=== PATIENT | female | born 1990 | race Hispanic/Latino ===

== ENCOUNTER 2017-11-17 08:52 | Emergency (ER) | payer BC | END 2017-11-17 09:06 | disposition home or self-care (01) | LOC: SCSER 08:52 | DX: S86.912A Strain of unspecified muscle(s) and tendon(s) at lower leg level, left leg, initial encounter (principal); S86.911A Strain of unspecified muscle(s) and tendon(s) at lower leg level, right leg, initial encounter; X50.0XXA Overexertion from strenuous movement or load, initial encounter | CPT/HCPCS: 99283 ==

== ENCOUNTER 2019-06-30 07:01 | Inpatient (IN) | payer BC ==
[2019-06-30] MEDS ORDERED: Ketorolac Tromethamine 30 MG/ML VIAL ONE (07:32)
[2019-06-30 08:25] LABS: Pregnancy Test - Urine (BHCG) Negative (Negative); Pregu Control Background? CLEAR/WHITE (CLR/WHITE); Pregu Control Bar Appear? YES (CONTROL BAR); Specific Gravity 1.026 (1.002-1.036)
[2019-06-30 08:48] LABS: Bilirubin Negative (Negative); Blood, Urine 2+ (Negative); Clarity Turbid (Clear); Glucose, Urine (Dipstick) Normal (Negative); Leukocyte 500 Leu/uL (Negative); Nitrite Negative (Negative); Protein, Urine (Dipstick) 10 mg/dL (Neg-Trace); Urobilinogen Normal mg/dL (Less than 2); WBC/HPF 21-50 HPF (0-3)
[2019-06-30 08:49] LABS: Bacteria/HPF 3+ HPF (None Seen); Yeast-Budding Rare HPF (None Seen)
[2019-06-30] MEDS ORDERED: Morphine 4 MG/ML VIAL ONE ×3 (08:54→12:08)
[2019-06-30] MEDS ORDERED: cefTRIAXone\\ROCEPHIN 1 GM VIAL ONE ×2 (08:54→09:03)
[2019-06-30] MEDS ORDERED: Ondansetron PF 4 MG/2 ML Vial ONE ×2 (08:56→09:03)
[2019-06-30 09:22] LABS: #Lymphocytes 0.9 thou/uL (1.20-3.40); #Monocytes 0.9 thou/uL (0.11-0.59); #Neutrophils 14.6 thou/uL (1.40-6.50); %Basophils 0.2 % (0.0-1.0); %Lymphocytes 5.5 % (21.0-51.0); %Monocytes 5.5 % (0.0-10.0); %Neutrophils 88.7 % (42.0-75.0); Hemoglobin 12.3 g/dL (12.0-16.0); Mean Corpuscular Hemoglobin 29.6 pg (27.0-31.0); Mean Corpuscular Volume 84.5 fL (78.0-98.0); Mean Platelet Volume 7.5 fL (7.4-10.4); Platelet Count 273 thou/uL (130-400); Red Blood Cell (RBC) Count 4.15 mill/uL (4.20-5.40); White Blood Cell (WBC) Count 16.5 thou/uL (4.8-10.8)
[2019-06-30 09:43] LABS: ALT (SGPT) 13 U/L (8-55); AST (SGOT) 14 U/L (5-34); Albumin 4.3 g/dL (3.5-5.0); Alkaline Phosphatase 67 U/L (40-110); Anion Gap 12 mmol/L (10-20); BUN (Urea Nitrogen) 10 mg/dL (7.0-18.7); Bilirubin, Total 1.9 mg/dL (0.2-1.2); Calc. Creatinine Clearance 0 mL/min (70-130); Calcium 9.4 mg/dL (7.8-10.44); Carbon Dioxide 20 mmol/L (22-29); Chloride 104 mmol/L (98-107); Estimated GFR-MDRD Greater than 90; Globulin 3.4 g/dL (2.4-3.5); Glucose 108 mg/dL (70-105); Potassium 3.4 mmol/L (3.5-5.1); Protein, Total 7.7 g/dL (6.0-8.3); Sodium 133 mmol/L (136-145)
--- NOTE | 2019-06-30 11:42 | PDOC.FPRHP ---
- History of Present Illness Chief Complaint: back pain History of Present Illness: Patience presents with a 1 day hx of back pain and chills she reports a sharp stabbing pain staring in her mid L back last night and continuing into today, she also had fever during this which brought her to the ED. she denies n/v/d, vaginal discharge or pain. she has never had anything like this before. no hx of kidney stones. ED Course: vanc, rocephin, morphine, ketorolac cbc, cmp, bcx, ucx, ua - History PMHx: none PSHx: CSx3 BTL FHx:HTN, DM Social:no TAD - Review of Systems General: reports: fever/chills, night sweats Eyes: denies: vision changes ENT: denies: nasal congestion Respiratory: denies: cough, shortness of breath Cardiovascular: denies: chest pain, palpitation Gastrointestinal: denies: nausea, vomiting, diarrhea Genitourinary: denies: incontinence, dysuria, discharge Skin: denies: rashes Musculoskeletal: reports: pain Neurological: denies: numbness, syncope - Vital signs 147/69, Pulse: 108, Resp: 26, Temp: 99.2 (Oral), Pain: 10, O2 sat: 100 on ( Room Air - Physical Exam Constitutional: NAD HEENT: normocephalic and atraumatic, grossly normal vision, grossly normal hearing Neck: trachea midline Chest: no-tender to palpation Heart: RRR, no murmurs/rubs/gallops Lungs: CTAB -Abdomen: mildly TTP throughout, CVA tenderness Musculoskeletal: normal structure, normal tone Neurological: no focal deficit, CN II-XII intact Skin: no rash/lesions, good turgor Heme/Lymphatic: no unusual bruising or bleeding Psychiatric: normal mood and affect FMR H&P: Results - Labs Result Diagrams: 06/30/19 09:06 06/30/19 09:06 Lab results: WBC 16.5 thou/uL (4.8-10.8) H 06/30/19 09:06 Hgb 12.3 g/dL (12.0-16.0) 06/30/19 09:06 Hct 35.0 % (36.0-47.0) L 06/30/19 09:06 MCV 84.5 fL (78.0-98.0) 06/30/19 09:06 Plt Count 273 thou/uL (130-400) 06/30/19 09:06 Neutrophils % 88.7 % (42.0-75.0) H 06/30/19 09:06 Sodium 133 mmol/L (136-145) L 06/30/19 09:06 Potassium 3.4 mmol/L (3.5-5.1) L 06/30/19 09:06 Chloride 104 mmol/L (98-107) 06/30/19 09:06 Carbon Dioxide 20 mmol/L (22-29) L 06/30/19 09:06 BUN 10 mg/dL (7.0-18.7) 06/30/19 09:06 Creatinine 0.71 mg/dL (0.6-1.1) 06/30/19 09:06 Glucose 108 mg/dL (70-105) H 06/30/19 09:06 Lactic Acid 0.8 mmol/L (0.5-2.2) 06/30/19 09:06 Calcium 9.4 mg/dL (7.8-10.44) 06/30/19 09:06 Total Bilirubin 1.9 mg/dL (0.2-1.2) H 06/30/19 09:06 AST 14 U/L (5-34) 06/30/19 09:06 ALT 13 U/L (8-55) 06/30/19 09:06 Alkaline Phosphatase 67 U/L (40-110) 06/30/19 09:06 Serum Total Protein 7.7 g/dL (6.0-8.3) 06/30/19 09:06 Albumin 4.3 g/dL (3.5-5.0) 06/30/19 09:06 Urine Ketones 10 mg/dL (Negative) A 06/30/19 07:37 Urine Blood 2+ (Negative) A 06/30/19 07:37 Urine Nitrite Negative (Negative) 06/30/19 07:37 Ur Leukocyte Esterase 500 Cirilo/uL (Negative) A 06/30/19 07:37 Urine RBC 7-10 HPF (0-3) A 06/30/19 07:37 Urine WBC 21-50 HPF (0-3) A 06/30/19 07:37 Ur Squamous Epith Cells 11-20 HPF (0-3) A 06/30/19 07:37 Urine Bacteria 3+ HPF (None Seen) A 06/30/19 07:37 FMR H&P: A/P - Problem List (1) Pyelonephritis Current Visit: Yes Status: Acute Code(s): N12 - TUBULO-INTERSTITIAL NEPHRITIS, NOT SPCF ACUTE OR CHRONIC - Plan pyelonephritis - elevated wbc, +UA, febrile - continue rocephin - CT stone protocol - morphine for pain control dispo: admit to inpatient medical for stay>48hrs FMR H&P: Upper Level - Plan Date/Time: 06/30/19 6468 I, [], have evaluated this patient and agree with findings/plan as outlined by international relations teacher resident. Pertinent changes/additions are listed here. Addendum - Attending - Attending Attestation Date/Time: 06/30/19 5340 I personally evaluated the patient and discussed the management with Dr. Love I agree with the History, Examination, Assessment and Plan documented above with any addition or exceptions noted below. 28 yo female with severe flank pain left greater than right admitted through ER with sepsis secondary to pyelonephritis. Given severity of pain would image this patient to r/u obstructive process. Rocephin should be adequate ABX coverage for now and continue IV hydration.
[2019-06-30] MEDS ORDERED: Ondansetron PF 4 MG/2 ML Vial IVP PRN (12:05)
[2019-06-30] MEDS ORDERED: Ondansetron ODT 4 MG TAB PO PRN (12:05)
[2019-06-30] MEDS: Morphine 4 MG/ML VIAL SLOW IVP PRN ×3 (12:11→20:51)
--- NOTE | 2019-06-30 12:50 | CT ---
CT Stone Protocol: 06/30/2019 12:05 PM HISTORY: Low back pain radiation to the legs and abdominal pain COMPARISON: None. TECHNIQUE: Multiple contiguous axial images were obtained and a CT of the abdomen and pelvis without IV contrast . Coronal and sagittal reformats were performed. FINDINGS: This examination is limited for the evaluation of solid organs and vascular structures due to the lac k of intravenous contrast. Lower Chest: within normal limits. Abdomen: Liver: within normal limits. Bile Ducts: Normal caliber. Gallbladder: No calcified gallstones. Normal caliber wall. Pancreas: within normal limits. Spleen: within normal limits. Adrenals: within normal limits. Kidneys: within normal limits. Pelvis: Reproductive Organs: No pelvic masses. Ureters: within normal limits. Bladder: within normal limits. Bowel: Normal caliber. Normal appendix. Mesenteric Lymph Nodes: No enlarged mesenteric lymph nodes. Peritoneum: No free air. A small amount of free fluid in the pelvis is likely physiologic. Vessels: Normal caliber aorta Retroperitoneum: within normal limits. Abdominal Wall: within normal limits. Bones: Unremarkable. IMPRESSION: No evidence of acute intraabdominal or pelvic abnormality.
[2019-06-30 15:02] VITALS: BMI 32.5
[2019-06-30] MEDS: Acetaminophen 325 MG TAB PO PRN (20:51)
[2019-07-01 05:41] LABS: #Eosinphils 0.1 thou/uL (0.0-0.7); #Lymphocytes 2.3 thou/uL (1.20-3.40); #Monocytes 0.9 thou/uL (0.11-0.59); #Neutrophils 7.5 thou/uL (1.40-6.50); %Basophils 0.3 % (0.0-1.0); %Eosinophils 1.3 % (0.0-10.0); %Lymphocytes 20.8 % (21.0-51.0); %Monocytes 8.5 % (0.0-10.0); %Neutrophils 69.1 % (42.0-75.0); Hemoglobin 11.5 g/dL (12.0-16.0); Mean Corpuscular HGB CONC 35.4 g/dL (32.0-36.0); Mean Corpuscular Hemoglobin 30.2 pg (27.0-31.0); Mean Corpuscular Volume 85.3 fL (78.0-98.0); Mean Platelet Volume 7.6 fL (7.4-10.4); Platelet Count 259 thou/uL (130-400); RBC Distribution Width 12.1 % (11.5-14.5); White Blood Cell (WBC) Count 10.8 thou/uL (4.8-10.8)
[2019-07-01 06:05] LABS: ALT (SGPT) 11 U/L (8-55); AST (SGOT) 10 U/L (5-34); Albumin 3.6 g/dL (3.5-5.0); Alkaline Phosphatase 63 U/L (40-110); Anion Gap 10 mmol/L (10-20); BUN (Urea Nitrogen) 9 mg/dL (7.0-18.7); Bilirubin, Total 0.9 mg/dL (0.2-1.2); Calc. Creatinine Clearance 149 mL/min (70-130); Calcium 8.5 mg/dL (7.8-10.44); Carbon Dioxide 26 mmol/L (22-29); Chloride 107 mmol/L (98-107); Estimated GFR-MDRD Greater than 90; Glucose 87 mg/dL (70-105); Potassium 3.6 mmol/L (3.5-5.1); Protein, Total 6.6 g/dL (6.0-8.3); Sodium 139 mmol/L (136-145)
--- NOTE | 2019-07-01 08:10 | PDOC.FM ---
- Subjective Subjective: pt resting in bed, complains of sore throat, tolerating PO, pain significantly improved. - Objective Vital Signs & Weight: Vital Signs (12 hours) Temp Pulse Resp BP Pulse Ox 07/01/19 07:40 98 F 78 18 101/68 97 07/01/19 04:32 98.1 F 69 16 105/70 100 07/01/19 00:43 99.0 F 77 16 98/62 98 Weight Weight 78 kg Result Diagrams: 07/01/19 05:29 07/01/19 05:29 Phys Exam - Physical Examination Constitutional: NAD HEENT: moist MMs tonsils erythematous with purulence Neck: no JVD Respiratory: clear to auscultation bilateral Cardiovascular: no significant murmur Gastrointestinal: non-tender Musculoskeletal: no edema Neurological: moves all 4 limbs Lymphatic: no nodes Psychiatric: normal affect Skin: no rash Dx/Plan (1) Pyelonephritis Code(s): N12 - TUBULO-INTERSTITIAL NEPHRITIS, NOT SPCF ACUTE OR CHRONIC Status: Acute - Plan Plan: pyelonephritis - elevated wbc, +UA, febrile - transition to cefdinir - CT neg - ibuprofen/chloreseptic spray dispo: dc on oral abx today Addendum - Attending - Attending Attestation Date/Time: 07/01/191914 I personally evaluated the patient and discussed the management with Dr. Love I agree with the History, Examination, Assessment and Plan documented above with any addition or exceptions noted below.Pain resolved much improved stable for d/c on po antibiotic and outpatient f/u.
[2019-07-01 08:25] VITALS: BP 101/69; TEMP 98.2
[2019-07-01] MEDS: Acetaminophen 325 MG TAB PO PRN (08:37)
[2019-07-01] MEDS ORDERED: Enoxaparin Sodium 40 MG/0.4 ML SYRINGE SC SCH (09:00)
[2019-07-01] MEDS ORDERED: cefTRIAXone\\ROCEPHIN 1 GM in Sodium Chloride 0.9% 100 ML IVPB SCH (09:00)
[2019-07-01] MEDS ORDERED: cefTRIAXone\\ROCEPHIN 1 GM VIAL IM SCH (09:00)
[2019-07-01] MEDS ORDERED: FLU VACC QS2019-20(6MOS UP)/PF 60 MCG/0.5 ML SYRINGE IM ONE (09:00)
[2019-07-01] MEDS ORDERED: Chloraseptic Spray 180 ml Bottle PO PRN (09:09)
[2019-07-01] MEDS ORDERED: Cefdinir 300 MG CAP PO SCH ×2 (10:30→21:00)
--- NOTE | 2019-07-02 11:15 | PQF ---
CLINICAL DOCUMENTATION IMPROVEMENT CLARIFICATION FORM: ICD-10 Updated PLEASE DO AN ADDENDUM TO THE PROGRESS NOTE WITH ANY DOCUMENTATION UPDATES OR ADDITIONS AND CARRY THROUGH TO DC SUMMARY. THANK YOU. DATE: 07/02/19 ATTN: DR. OLSON Please exercise your independent, professional judgment in responding to the clarification form. Clinical indicators are provided on the bottom of this form for your review Please check appropriate box(es): [ ] Sepsis due to: (Pna, UTI, gangrenous gall bladder, etc.) [ ] SIRS due to non-infectious process (please specify etiology) [ x] Localized infection without sepsis [ ] Other diagnosis [ ] Unable to determine In addition, please specify: Present on Admission (POA): [ x] Yes [ ] No [ ] Unable to determine For continuity of documentation, please document condition throughout progress notes and discharge summary. Thank You. CLINICAL INDICATORS - SIGNS / SYMPTOMS / LABS / RESULTS AND LOCATION IN MR ER NOTE: "SEPSIS" PULSE 108 RR 26 WBC 06/30: 16.5 RISKS: PYELONEPHRITIS (H&P) TREATMENT: IV VANCOMYCIN (ER) IV ROCEPHIN (ER-07/01) BLOOD AND URINE CULTURES (06/30) (This form is maintained as a part of the permanent medical record) [employer] 2014 [employer]. All Rights Reserved [email or web address] Office: [phone] [email or web address]
== END 2019-07-01 12:03 | disposition home or self-care (01) | DRG 690 ==
LOC: ERS 07:01 → ERHOLD 10:49 → T4-B 15:25
PROVIDERS: ADMIT Family Medicine; ATTEND Family Medicine
DX: N12 Tubulo-interstitial nephritis, not specified as acute or chronic (principal); Z28.21 Immunization not carried out because of patient refusal
CPT/HCPCS: 36415; 74176; 80053; 81003; 81015; 81025; 82550; 83605; 84145; 85025; 87040; 87086; 87804; J0696; J1650; J1885; J2270; J2405; J3370; J3490

== ENCOUNTER 2020-05-26 01:21 | Emergency (ER) | payer SELFPAY ==
[2020-05-26] MEDS ORDERED: Ibuprofen 800 MG TAB ONE (01:32)
--- NOTE | 2020-05-26 09:28 | RAD ---
RIGHT FOOT 3 VIEWS: Date: 05/26/2020 HISTORY: Foot pain. Toe pain with injury. FINDINGS: The tarsals and metatarsals appear intact. Evaluation of the phalanges reveals a subtle linear lucency involving the articular surface of the gr eat toe at the IP joint. A subtle nondisplaced fracture is not excluded. If this is site of tendernes s, suggest immobilization and short-term follow-up. IMPRESSION: Questioned subtle fracture proximal phalanx of great toe at the IP joint. CODE T. POS: CASSIA
== END 2020-05-26 02:04 | disposition home or self-care (01) ==
LOC: ERS 01:21
DX: S90.111A Contusion of right great toe without damage to nail, initial encounter (principal); W22.8XXA Striking against or struck by other objects, initial encounter